=== PATIENT | male | born 1935 ===

== ENCOUNTER 2019-04-26 20:50 | Outpatient (REF) | payer MEDICARE, MEDICAID, SELFPAY ==
[2019-04-26 21:25] LABS: Anion Gap 8.2 mmol/L (3-11); BUN 31 mg/dL (7-18); CO2 35.8 mmol/L (21.0-32.0); CREATININE 1.74 mg/dL (0.70-1.30); Calcium 8.6 mg/dL (8.5-10.1); Chloride 98 mmol/L (98-107); Estimated GFR 37.75 (mL/min/1.73m2); Glucose 114 mg/dL (70-100); Sodium 142 mmol/L (136-145)
[2019-04-26 21:48] LABS: Potassium 2.3 mmol/L (3.5-5.1)
== END 2019-04-26 21:10 ==
LOC: NCHCN 20:50
PROVIDERS: PCP Internal Medicine; Visit Provider Internal Medicine
DX: I10 Essential (primary) hypertension (principal)
CPT/HCPCS: 80048

== ENCOUNTER 2019-06-20 21:31 | Outpatient (REF) | payer MEDICARE, MEDICAID, SELFPAY ==
[2019-06-20 21:54] LABS: Bilirubin Negative (Negative); Blood Negative (Negative); Clarity Clear (Clear); Glucose Negative (Negative); Ketones Negative (Negative); Leukocyte Esterase Negative (Negative); Nitrite Negative (Negative); Specific Gravity <= 1.005 (1.005-1.025); Urobilinogen 0.2 EU/dL (Up TO 0.2)
== END 2019-06-20 21:51 ==
LOC: NCHCN 21:31
PROVIDERS: PCP Internal Medicine; Visit Provider Internal Medicine
DX: N40.0 Benign prostatic hyperplasia without lower urinary tract symptoms (principal); I50.32 Chronic diastolic (congestive) heart failure; F03.90 Unspecified dementia, unspecified severity, without behavioral disturbance, psychotic disturbance, mood disturbance, and anxiety
CPT/HCPCS: 81003

== ENCOUNTER 2019-07-01 21:59 | Outpatient (REF) | payer MEDICARE, MEDICAID, SELFPAY ==
[2019-07-01 21:56] LABS: Potassium 4.6 mmol/L (3.5-5.1)
== END 2019-07-01 22:19 ==
LOC: LBN 21:59
PROVIDERS: PCP Internal Medicine; Visit Provider Internal Medicine
DX: I50.32 Chronic diastolic (congestive) heart failure (principal); I11.0 Hypertensive heart disease with heart failure
CPT/HCPCS: 84132